=== PATIENT | female | born 1995 | race Caucasian/White ===

== ENCOUNTER 2018-09-09 17:02 | Emergency (ER) | payer MEDICAID, OTHER ==
[~2018-09-09] VITALS: Ht 162.6 cm; Wt 51.0 kg
--- NOTE | 2018-09-09 17:33 | NUR ---
PT STATES THAT SHE WAS SEEN AT [facility] YESTERDAY FOR HER LEFT DISLOCATED SHOULDER & THEY WERE UNABLE TO REDUCE IT. PT REPORTS WORSENING PAIN. PT STATES SHE CALLED [facility] TO FOLLOW-UP TODAY & THAT "THEY SAID THEY WOULD CALL ME BACK TOMORROW".
--- NOTE | 2018-09-09 17:33 | NUR ---
XRAY AT BEDSIDE
--- NOTE | 2018-09-09 17:36 | NUR ---
RECORDS REQUESTED FROM [facility]
--- NOTE | 2018-09-09 18:12 | NUR ---
md farley at bedside to assess pt, pt to have shoulder reduced
[2018-09-09] MEDS ORDERED: PROPOFOL 10 MG/ML, 20ML ONE (18:25)
[2018-09-09] MEDS ORDERED: SODIUM CHLORIDE FLUSH 10ML SYR IVF ONE (18:30)
[2018-09-09] MEDS ORDERED: PROPOFOL 10 MG/ML, 20ML IVPush ONE (18:30)
--- NOTE | 2018-09-09 18:30 | NUR ---
RANJIT CANO AT BEDSIDE TO ASSIST W/ CONSCIOUS SEDATION
--- NOTE | 2018-09-09 18:35 | NUR ---
PLEASE REFER TO PROCEDURAL SEDTION PACKET FOR NETES AND VITALS.
[2018-09-09] MEDS ORDERED: MORPHINE SULFATE 4 MG/ML, 1ML ONE ×3 (18:55→21:06)
[2018-09-09] MEDS ORDERED: MORPHINE SULFATE 4 MG/ML, 1ML IVPush ONE ×3 (19:00→21:30)
--- NOTE | 2018-09-09 20:18 | NUR ---
PT TO MRI AFTER BEING MEDICATED FOR PAIN.
--- NOTE | 2018-09-09 21:15 | NUR ---
PT MEDICATED IN MRI FOR PAIN PER DR. PIERSON PT WOULD NOT SIT STILL DURING TEST.
[2018-09-09 22:01] VITALS: BP 105/72
--- NOTE | 2018-09-09 22:03 | NUR ---
PT DID NOT WANT TO WAIT FOR MRI DISC. PT WILL STOP BY TOMORROW TO PICK IT UP PRIOR TO [facility] APPOINTMENT.
== END 2018-09-09 22:04 | disposition home or self-care (01) ==
LOC: ED 21:55
DX: S43.005A Unspecified dislocation of left shoulder joint, initial encounter (principal); X58.XXXA Exposure to other specified factors, initial encounter; Y93.89 Activity, other specified; Y92.89 Other specified places as the place of occurrence of the external cause; Y99.8 Other external cause status
CPT/HCPCS: 23650; 73020; 73030; 73221; 96374; 96376; 99285; J2704

== ENCOUNTER → 2020-07-13 | Outpatient (CLI) | payer OTHER, MEDICAID | END | disposition home or self-care (01) | LOC: STAR 12:06 | PROVIDERS: ATTEND Orthopaedic Surgery | DX: Z20.822 Contact with and (suspected) exposure to COVID-19 (principal); S83.191A Other subluxation of right knee, initial encounter; M25.561 Pain in right knee; X58.XXXA Exposure to other specified factors, initial encounter; Y92.89 Other specified places as the place of occurrence of the external cause; Y99.8 Other external cause status | CPT/HCPCS: 87635 ==